=== PATIENT | female | born 1945 | race Caucasian/White ===

== ENCOUNTER 2016-07-31 09:03 | Emergency (ER) | payer OTHER ==
[~2016-07-31] VITALS: Ht 162.6 cm; Wt 68.8 kg
[~2016-07-31 09:03] MED LIST: ASPEC81 PO; CALCTAB5 PO; HYDC25 PO; SIMV20TA2 PO
[2016-07-31 09:11] VITALS: TEMP 36.9; Ht 162.6 cm; Wt 68.8 kg
--- NOTE | 2016-07-31 10:07 | DIAGNOSTIC IMAGING REPORT ---
CHEST 2 VIEWS ROUTINE HISTORY: productive cough COMPARISON: Chest 05/09/2008. FINDINGS: A few small bibasilar linear densities likely represent subsegmental atelectasis or scarring. No focal lung consolidations to suggest pneumonia. No evidence for pulmonary edema. The heart is normal in size. No pleural effusions. No pneumothorax. Upper abdominal surgical clips suggest a prior cholecystectomy. IMPRESSION: A few small bibasilar linear densities likely representing scarring or subsegmental atelectasis. No focal lung consolidations to suggest pneumonia. Electronically signed by: Tyshawn Sutherland M.D. 07/31/2016 10:05 AM Dictated Date/Time: 07/31/2016 10:04 AM
[2016-07-31 11:08] LABS: BASO % 0.3 %; BASO ABS # 0.01 K/uL (0-0.2); COMPLETE YES; HEMATOCRIT 42.8 % (37-47); IG% 0.3 %; LYMPH % 33.3 %; LYMPH ABS # 1.32 K/uL (1.2-3.4); MEAN CELL VOLUME 86.8 fL (80-100); MEAN CORPUSCULAR HEMOGLOBIN 29.2 pg (25-34); MEAN CORPUSCULAR HGB CONC 33.6 g/dl (32-36); MEAN PLATELET VOLUME 9.3 fL (7.4-10.4); MONO % 16.7 %; NEUT % 48.4 %; PLATELET COUNT 183 K/uL (130-400); RED BLOOD COUNT 4.93 M/uL (4.2-5.4); WHITE BLOOD COUNT 3.96 K/uL (4.8-10.8)
[2016-07-31 11:27] LABS: BUN/CREATININE RATIO 11.3 (10-20); CALCIUM 8.7 mg/dl (8.5-10.1); CREATININE 0.8 mg/dl (0.60-1.20); POTASSIUM 2.9 mmol/L (3.5-5.1)
[2016-07-31] MEDS ORDERED: POTASSIUM CHLORIDE 10 MEQ TABCR PO STA (12:34)
[2016-07-31] MEDS ORDERED: ALBUTEROL HFA 8 GM INHALER INH ONE (12:45)
[2016-07-31 13:07] VITALS: BP 120/74; PULSE 75; O2SAT 96
--- NOTE | 2016-08-03 18:18 | EMERGENCY ROOM VISIT NOTE ---
History First contact with patient: 09:53 Chief Complaint: COUGH Stated Complaint: COUGHING, DIFFICULTY BREATHING, WEAK Nursing Triage Summary: Patient states symptoms started . Went to PCP and was put on Tamiflu and cough syrup. Not tested for the flu and no chest xray was done. Cough became productive Monday. Patient states cough ranges from thick, yellow to red. Patient states was feeling better yesterday, but today feels worse again. History of Present Illness The patient is a 71 year old white female who presents to the Emergency Room with complaints of weakness, persistent cough, and shortness of breath. Symptoms have been present since . She saw her PCP on Monday and was laced on Tamiflu and cough syrup. She has not been taking the cough syrup because it makes her lightheaded and dizzy. She states no influenza swab was done and no chest x-ray was performed. Her cough is productive. Mucous is occasionally yellow and is thick. She felt better yesterday but feels worse again today. Her daughter accompanies her today. Patient denies any nausea or vomiting. No diarrhea. She is unsure if there is a fever. Occasional chills. She does not think the Tamiflu helped. No recent respiratory infection. No known ill contacts. No history of asthma. Review of Systems REVIEW OF SYSTEM: HEENT: No dizziness, visual problems, hearing loss, or tinnitus. There is no difficulty swallowing and no oral lesions are present. LYMPH: No adenopathy. PULMONARY: No hemoptysis. Positive cough, shortness of breath. CARDIOVASCULAR: No chest pain, palpitations, or peripheral edema. GASTROINTESTINAL: No diarrhea, constipation, nausea, vomiting, or abdominal pain. GENITOURINARY: No dysuria, frequency, urgency or nocturia. NEUROLOGIC: No weakness, muscle tenderness, epilepsy or history of neurological problems. MUSCULOSKELETAL: No history of joint tenderness/swelling. No history of arthritis or arthralgias. SKIN: No rashes or lesions. PSYCHIATRIC: No history of depression or mental illness. ENDOCRINE: No history of diabetes, thyroid disorders, or abnormal hair growth. Past Medical/Surgical History Past medical history: Significant for hypertension, history of bronchitis, and gallbladder disease. Previous surgeries: Cholecystectomy Family History Significant for diabetes, cancer, and gallbladder disease. Parents are . Social History Smoking Status: Never Smoker Smokeless Tobacco Use: No Alcohol Use: none Drug Use: none Marital Status: single Housing Status: lives alone Occupation Status: employed Current/Historical Medications Scheduled Aspirin Enteric Coated (Ecotrin Or Generic *), 81 MG PO DAILY Calcium (Caltrate), 600 MG PO BID Hydrochlorothiazide (Hctz *), 25 MG PO DAILY Allergies Coded Allergies: Macrolides (Verified Allergy, Mild, 07/31/16) Physical Exam Vital Signs Date Time Temp Pulse Resp B/P Pulse Ox O2 Delivery O2 Flow Rate FiO2 07/31/16 13:07 75 22 120/74 96 07/31/16 12:34 79 22 117/70 94 Room Air 07/31/16 10:55 73 18 106/70 96 Room Air 07/31/16 09:35 81 07/31/16 09:19 97 Room Air 07/31/16 09:11 36.9 85 18 135/85 97 Room Air Pain Rating (0-10): 0 Physical Exam Gen.: Well-developed, well-nourished, elderly white female, in no acute distress. Laying on a bed. Alert and oriented. Frequently coughing. She is wearing a mask. Skin:Warm and dry with good turgor. No rashes or lesions. No ecchymosis or erythema. The patient is not diaphoretic. No abrasions. HEENT : Normocephalic atraumatic. Eyes PERRLA, EOMI. No conjunctiva or scleral injection. Ears TMs intact bilaterally with good light reflexes. No erythema or bulging. No hemotympanum. Canals are patent. Nares patent bilaterally without turbinate enlargement. No significant drainage. No epistaxis. Oropharynx without erythema or exudate. Uvula midline, oral mucosa moist. No lesions present. Postnasal drip is noted. Cobblestoning on the posterior pharynx. Lymphatics are palpated without anterior or posterior chain enlargement or tenderness. Heart: Heart RRR. No MGR. No carotid bruit. Peripheral pulses are 2+. Lungs: Lungs are clear to auscultation. No crackles rhonchi or wheezing. Good air movement. The patient is able to take a deep breath. Frequent cough. Abdomen: Abdomen was inspected, auscultated, and palpated. Bowel sounds present x 4. Soft, nontender to palpation. No hepato-splenomegaly. No masses noted. No rebound. Musculoskeletal: Gross motor function of the upper and lower extremities is intact and unremarkable. Medical Decision & Procedures ER Provider Diagnostic Interpretation: Chest x-ray obtained today was read by radiology as positive for a few small bibasilar linear densities likely representing scarring or atelectasis. No focal lung consolidations to suggest pneumonia. Laboratory Results 07/31/16 10:52 Red Blood Count 4.93, Mean Corpuscular Volume 86.8, Mean Corpuscular Hemoglobin 29.2, Mean Corpuscular Hemoglobin Concent 33.6, Mean Platelet Volume 9.3, Neutrophils (%) (Auto) 48.4, Lymphocytes (%) (Auto) 33.3, Monocytes (%) (Auto) 16.7, Eosinophils (%) (Auto) 1.0, Basophils (%) (Auto) 0.3, Neutrophils # (Auto ) 1.92, Lymphocytes # (Auto) 1.32, Monocytes # (Auto) 0.66, Eosinophils # (Auto ) 0.04, Basophils # (Auto) 0.01 07/31/16 10:52 Test 07/31/16 10:41 07/31/16 10:52 Influenza Type A Antigen Neg for Influ A (NEG) Influenza Type B Antigen Neg for Influ B (NEG) White Blood Count 3.96 K/uL (4.8-10.8) Red Blood Count 4.93 M/uL (4.2-5.4) Hemoglobin 14.4 g/dL (12.0-16.0) Hematocrit 42.8 % (37-47) Mean Corpuscular Volume 86.8 fL (80-100) Mean Corpuscular Hemoglobin 29.2 pg (25-34) Mean Corpuscular Hemoglobin Concent 33.6 g/dl (32-36) Platelet Count 183 K/uL (130-400) Mean Platelet Volume 9.3 fL (7.4-10.4) Neutrophils (%) (Auto) 48.4 % Lymphocytes (%) (Auto) 33.3 % Monocytes (%) (Auto) 16.7 % Eosinophils (%) (Auto) 1.0 % Basophils (%) (Auto) 0.3 % Neutrophils # (Auto) 1.92 K/uL (1.4-6.5) Lymphocytes # (Auto) 1.32 K/uL (1.2-3.4) Monocytes # (Auto) 0.66 K/uL (0.11-0.59) Eosinophils # (Auto) 0.04 K/uL (0-0.5) Basophils # (Auto) 0.01 K/uL (0-0.2) RDW Standard Deviation 40.3 fL (36.4-46.3) RDW Coefficient of Variation 12.6 % (11.5-14.5) Immature Granulocyte % (Auto) 0.3 % Immature Granulocyte # (Auto) 0.01 K/uL (0.00-0.02) Anion Gap 7.0 mmol/L (3-11) Est Creatinine Clear Calc Drug Dose 62.4 ml/min Estimated GFR () 86.6 Estimated GFR (Non- 74.7 BUN/Creatinine Ratio 11.3 (10-20) Calcium Level 8.7 mg/dl (8.5-10.1) CBC, PRP, an influenza swab were obtained. They are unremarkable except her potassium of 2.9. Medications Administered Medications (Trade) Dose Ordered Sig/Dayami Route Start Time Stop Time Status Last Admin Dose Admin Albuterol (Ventolin Hfa Inhaler) 4 puffs NOW ONCE INH 07/31/16 12:45 07/31/16 12:46 DC 07/31/16 12:46 4 PUFFS Potassium Chloride (Klor-Con M10) 20 meq NOW STAT PO 07/31/16 12:34 07/31/16 12:36 DC 07/31/16 12:45 20 MEQ Potassium 20 and V/Q orally, albuterol inhaler with spacer ED Course Patient was educated regarding today's findings. Conservative care measures were discussed. IV was established. Labs were obtained. Chest x-ray was obtained. Influenza swab was also obtained. No significant infection was found. She does not have influenza. She does not need the Tamiflu. She likely has bronchitis. She was prescribed an albuterol inhaler. 4 puffs were given in the ED, with a spacer. Continue with 2 puffs every 4 hours as needed for shortness of breath or cough. Start Delsym syrup 2 teaspoons every 12 hours until cough resolves. Follow-up with her PCP this week. Return to the ED for any acute changes or fever above 100.5. Maintain hydration. Bronchitis handout was provided. She does have a low potassium. This was also discussed. She was given supplemental potassium in the ED. She will also increase potassium intake in her daily diet. Medical Decision Possibility of PE, pneumonia, bronchitis, influenza, and other viral illness were considered. Impression Primary Impression: Acute bronchitis Departure Information Dispostion Home / Self-Care Condition GOOD Referrals Ace Villareal M.D. (PCP) Forms ALBUTEROL INHALER INSTRUCTIONS, HOME CARE DOCUMENTATION FORM, COOL MIST HUMIDIFIER, IMPORTANT VISIT INFORMATION Patient Instructions A Signature Page, Chest Cold (Bronchitis) - [facility], [facility] Additional Instructions Follow-up with your PCP next week for reexamination Return to the ED for any acute changes or fever above 100.5 Albuterol inhaler 2 puffs every 4 hours as needed for shortness of breath/cough Delsym syrup 2 teaspoons every 12 hours until cough resolves Maintain hydration
== END 2016-07-31 13:11 | disposition home or self-care (01) ==
LOC: C.EDB 09:04 → C.EDA 13:11
DX: J20.9 Acute bronchitis, unspecified (principal); I10 Essential (primary) hypertension; Z79.82 Long term (current) use of aspirin

== ENCOUNTER → 2017-01-30 | Outpatient (CLI) | payer OTHER ==
[~2017-01-30] MED LIST changes: -SIMV20TA2 PO
--- NOTE | 2017-01-30 16:06 | MAMMOGRAPHY REPORT ---
BILATERAL DIGITAL SCREENING MAMMOGRAM WITH CAD: 01/30/2017 CLINICAL HISTORY: Routine screening. Patient has no complaints. TECHNIQUE: Bilateral CC and MLO views were obtained. Current study was also evaluated with a Compute r Aided Detection (CAD) system. COMPARISON: Comparison is made to exams dated: 01/29/2016 mammogram, 01/27/2015 mammogram, 12/31/2013 jolene mogram, 11/08/2011 mammogram - [facility], 03/12/2009, and 11/14/2007. BREAST COMPOSITION: There are scattered areas of fibroglandular density in both breasts. FINDINGS: No new suspicious mass, architectural distortion or cluster of microcalcifications is seen . IMPRESSION: ACR BI-RADS CATEGORY 1: NEGATIVE There is no mammographic evidence of malignancy. A 1 year screening mammogram is recommended. The pa tient will receive written notification of the results. Approximately 10% of breast cancers are not detected with mammography. A negative mammographic report should not delay biopsy if a clinically suggestive mass is present. Eryn Dior M.D. ay/:01/30/2017 14:43:05 [employer] Associate: Harper LOZA(R)(M), [facility] letter sent: Normal 1/2 BI-RADS Code: ACR BI-RADS Category 1: Negative
== END | disposition home or self-care (01) ==
LOC: C.MAMM 13:45
PROVIDERS: ATTEND Family Medicine
DX: Z12.31 Encounter for screening mammogram for malignant neoplasm of breast (principal)

== ENCOUNTER 2017-11-19 10:44 | Emergency (ER) | payer OTHER ==
[~2017-11-19] VITALS: Ht 167.6 cm; Wt 67.8 kg
[2017-11-19 10:51] VITALS: TEMP 37.2; Ht 167.6 cm; Wt 67.8 kg
[2017-11-19] MEDS ORDERED: SODIUM CHLORIDE 0.9% 1000ML 500 ML IV STA (11:21)
[2017-11-19] MEDS ORDERED: METHYLPREDNISOLONE 125 MG VIAL IV STA (11:21)
[2017-11-19] MEDS ORDERED: ALBUT/IPRATROP 3MG/0.5MG NEB 3 ML VIAL INH STA (11:21)
[2017-11-19 11:27] VITALS: O2SAT 98
[2017-11-19] MEDS ORDERED: HYDR25TA4 PO (11:30)
[2017-11-19] MEDS ORDERED: COEN10CA5 PO (11:30)
[2017-11-19] MEDS ORDERED: ASPI81TA28 PO (11:30)
[2017-11-19] MEDS ORDERED: ROSU5TAB PO (11:30)
[2017-11-19 11:41] LABS: BASO % 0.2 %; BASO ABS # 0.01 K/uL (0-0.2); EOS % 0.2 %; EOS ABS # 0.01 K/uL (0-0.5); HEMATOCRIT 46.1 % (37-47); HEMOGLOBIN 15.1 g/dL (12.0-16.0); IG# 0.01 K/uL (0.00-0.02); LYMPH % 24.6 %; LYMPH ABS # 1.21 K/uL (1.2-3.4); MEAN CELL VOLUME 89.3 fL (80-100); MEAN CORPUSCULAR HEMOGLOBIN 29.3 pg (25-34); MEAN CORPUSCULAR HGB CONC 32.8 g/dl (32-36); MEAN PLATELET VOLUME 9.2 fL (7.4-10.4); MONO % 9.6 %; MONO ABS # 0.47 K/uL (0.11-0.59); NEUT % 65.2 %; NEUT ABS # 3.21 K/uL (1.4-6.5); PLATELET COUNT 138 K/uL (130-400); RED CELL DISTRIBUTION WIDTH CV 12.9 % (11.5-14.5); RED CELL DISTRIBUTION WIDTH SD 42.2 fL (36.4-46.3); WHITE BLOOD COUNT 4.92 K/uL (4.8-10.8)
[2017-11-19 11:49] LABS: ALBUMIN 3.9 gm/dl (3.4-5.0); CALCIUM 9.1 mg/dl (8.5-10.1); CREATININE 1.03 mg/dl (0.60-1.20)
[2017-11-19 12:00] LABS: TOTAL PROTEIN 7.6 gm/dl (6.4-8.2)
[2017-11-19] MEDS ORDERED: POTASSIUM CHLORIDE 10 MEQ TABCR PO STA (12:00)
--- NOTE | 2017-11-19 12:08 | DIAGNOSTIC IMAGING REPORT ---
SINGLE VIEW CHEST CLINICAL HISTORY: Weakness. Change in mental status. FINDINGS: An AP, portable, supine chest radiograph is compared to study dated 07/31/2016. The cardiomediastinal silhouette is unremarkable. Chronic interstitial thickening is similar to previous. There is mild elevation of right hemidiaphragm with bibasilar atelectasis. No airspace consolidation or large pleural effusion is identified. No pneumothorax is seen. The skeletal structures are osteopenic. The bony thorax is grossly intact. Cholecystectomy clips are identified in the right upper quadrant. IMPRESSION: No acute cardiopulmonary abnormality. Electronically signed by: Prashant Huizar M.D. 11/19/2017 12:06 PM Dictated Date/Time: 11/19/2017 12:05 PM
[2017-11-19] MEDS ORDERED: SODIUM CHLORIDE 0.9% 500ML 500 ML IV STA (12:15)
[2017-11-19 12:48] LABS: INFLUENZA A PCR Neg for Influ A (NEG)
[2017-11-19 12:50] LABS: INFLUENZA B PCR POS for Influ B (NEG)
[2017-11-19] MEDS ORDERED: OSELTAMIVIR PHOSPHATE 75 MG CAP PO STA (13:12)
[2017-11-19] MEDS ORDERED: AZITTAB PO (14:11)
[2017-11-19] MEDS ORDERED: OSEL75CA12 PO (14:11)
[2017-11-19] MEDS ORDERED: PRED20TA PO (14:11)
[2017-11-19 14:24] VITALS: BP 136/72; PULSE 76; O2SAT 96
--- NOTE | 2017-11-19 15:34 | EMERGENCY ROOM VISIT NOTE ---
History Report prepared by Victor M: Say Arboleda Under the Supervision of: Dr. Prashant Castillo M.D. First contact with patient: 11:10 Chief Complaint: WEAKNESS Stated Complaint: SYNCOPE,SHAKINESS,WEAKNESS Nursing Triage Summary: Fatigue for 3 days. Cough. Pt was put on Prednisone and antibiotics a few weeks ago for a cold. Pt reports this am around [id number] she sat down on the bed and passed out. Pt feels shaky. Denies pain, SOB, or fevers. PT reports being tested for the flu when she was seen at her PCP and it was negative. PT reports occasionally coughing clear sputum up. History of Present Illness The patient is a 72 year old female who presents to the Emergency Room with complaints of a resolved syncopal episode that occurred this morning. The patient states she went to her PCP on October 22 for a cough and stuffy nose. She reports she was given Zithromax and prednisone. The patient notes she took her medication as prescribed and felt better. She states she felt worse and started coughing three days ago. The patient reports she is more tired and slept 5 hours later than normal yesterday. She notes she woke up to take her medication this morning and she felt dizzy. The patient states she sat down on her bed and then woke up after losing consciousness. She reports her pills were all over the floor, and she was incontinent of her urine. The patient notes she does not remember what happened. She states she has also been experiencing intermittent flank pain over the past few days. The patient reports she has an inhaler at home and has not used it because she is not short of breath. She denies chest pain, shortness of breath, a history of lung disease, being exposed to people with the flu, and a history of diabetes, heart, or spleen issues. Source of History: patient Onset: this morning Symptom Intensity: 1 episode Quality: other (syncopal episode) Timing: resolved Associated Symptoms: + LOC, No chest pain, No SOB Note: Associated symptoms: more tired, incontinent of urine, dizziness, intermittent flank pain Review of Systems See HPI for pertinent positives & negatives. A total of 10 systems reviewed and were otherwise negative. Past Medical & Surgical Medical Problems: (1) HTN (hypertension) Surgical Problems: (1) S/P cholecystectomy Family History Cancer Diabetes mellitus FHx: gallbladder disease Social History Smoking Status: Never Smoker Alcohol Use: none Drug Use: none Marital Status: Housing Status: lives alone Occupation Status: employed Current/Historical Medications Scheduled Aspirin (Aspirin Ec), 81 MG PO DAILY Azithromycin (Zithromax Z-Karl), 0 PO UD Coenzyme Q10 (Ubidecarenone) (Co Q 10), 1 CAP PO HS Hydrochlorothiazide (Hctz), 25 MG PO DAILY Oseltamivir (Tamiflu), 75 MG PO BID Prednisone (Prednisone), 1 TAB PO DAILY Rosuvastatin Calcium (Crestor), 1 TAB PO HS Allergies Coded Allergies: Macrolides (Verified Allergy, Mild, 11/19/17) Erythromycin (Unverified Allergy, Unknown, UNKNOWN, 11/19/17) Physical Exam Vital Signs Date Time Temp Pulse Resp B/P (MAP) Pulse Ox O2 Delivery O2 Flow Rate FiO2 11/19/17 14:24 76 18 136/72 96 11/19/17 13:36 81 18 144/67 95 Room Air 11/19/17 12:00 86 18 119/70 99 Room Air 81 125/73 91 130/69 11/19/17 11:27 98 Room Air 11/19/17 11:06 82 11/19/17 10:51 37.2 87 18 125/76 98 Room Air Physical Exam GENERAL: Patient is in no acute distress. Moist cough noted. HEENT: No acute trauma, normocephalic atraumatic, mucous membranes moist, no nasal congestion, no scleral icterus. NECK: No stridor, no adenopathy, no meningismus, trachea is midline. LUNGS: Clear to auscultation bilaterally, no wheeze, no rhonchi, breath sounds equal. HEART: Without murmurs gallops or rubs, regular rate and rhythm. ABDOMEN: Soft, nontender, bowel sounds positive, no hernias, no peritonitis. EXTREMITIES: No cyanosis or edema, full range of motion of all the joints without pain or difficulty, no signs for acute trauma. NEUROLOGIC: Oriented x 3, no acute motor or sensory deficits, no focal weakness. SKIN: No rash, no jaundice, no diaphoresis. Medical Decision & Procedures ER Provider Diagnostic Interpretation: X-ray results as stated below per interpretation by me and the radiologist: SINGLE VIEW CHEST CLINICAL HISTORY: Weakness. Change in mental status. FINDINGS: An AP, portable, supine chest radiograph is compared to study dated 07/31/2016. The cardiomediastinal silhouette is unremarkable. Chronic interstitial thickening is similar to previous. There is mild elevation of right hemidiaphragm with bibasilar atelectasis. No airspace consolidation or large pleural effusion is identified. No pneumothorax is seen. The skeletal structures are osteopenic. The bony thorax is grossly intact. Cholecystectomy clips are identified in the right upper quadrant. IMPRESSION: No acute cardiopulmonary abnormality. Electronically signed by: Prashant Huizar M.D. 11/19/2017 12:06 PM Dictated Date/Time: 11/19/2017 12:05 PM Laboratory Results 11/19/17 11:05 Red Blood Count 5.16, Mean Corpuscular Volume 89.3, Mean Corpuscular Hemoglobin 29.3, Mean Corpuscular Hemoglobin Concent 32.8, Mean Platelet Volume 9.2, Neutrophils (%) (Auto) 65.2, Lymphocytes (%) (Auto) 24.6, Monocytes (%) (Auto) 9.6, Eosinophils (%) (Auto) 0.2, Basophils (%) (Auto) 0.2, Neutrophils # (Auto) 3.21, Lymphocytes # (Auto) 1.21, Monocytes # (Auto) 0.47, Eosinophils # (Auto) 0.01, Basophils # (Auto) 0.01 11/19/17 11:05 Test 11/19/17 11:05 11/19/17 11:06 11/19/17 11:09 11/19/17 13:30 White Blood Count 4.92 K/uL (4.8-10.8) Red Blood Count 5.16 M/uL (4.2-5.4) Hemoglobin 15.1 g/dL (12.0-16.0) Hematocrit 46.1 % (37-47) Mean Corpuscular Volume 89.3 fL (80-100) Mean Corpuscular Hemoglobin 29.3 pg (25-34) Mean Corpuscular Hemoglobin Concent 32.8 g/dl (32-36) Platelet Count 138 K/uL (130-400) Mean Platelet Volume 9.2 fL (7.4-10.4) Neutrophils (%) (Auto) 65.2 % Lymphocytes (%) (Auto) 24.6 % Monocytes (%) (Auto) 9.6 % Eosinophils (%) (Auto) 0.2 % Basophils (%) (Auto) 0.2 % Neutrophils # (Auto) 3.21 K/uL (1.4-6.5) Lymphocytes # (Auto) 1.21 K/uL (1.2-3.4) Monocytes # (Auto) 0.47 K/uL (0.11-0.59) Eosinophils # (Auto) 0.01 K/uL (0-0.5) Basophils # (Auto) 0.01 K/uL (0-0.2) RDW Standard Deviation 42.2 fL (36.4-46.3) RDW Coefficient of Variation 12.9 % (11.5-14.5) Immature Granulocyte % (Auto) 0.2 % Immature Granulocyte # (Auto) 0.01 K/uL (0.00-0.02) Anion Gap 6.0 mmol/L (3-11) Est Creatinine Clear Calc Drug Dose 46.9 ml/min Estimated GFR () 63.3 Estimated GFR (Non- 54.6 BUN/Creatinine Ratio 11.7 (10-20) Calcium Level 9.1 mg/dl (8.5-10.1) Magnesium Level 2.0 mg/dl (1.8-2.4) Total Bilirubin 0.3 mg/dl (0.2-1) Aspartate Amino Transf (AST/SGOT) 42 U/L (15-37) Alanine Aminotransferase (ALT/SGPT) 49 U/L (12-78) Alkaline Phosphatase 65 U/L (45-117) Total Protein 7.6 gm/dl (6.4-8.2) Albumin 3.9 gm/dl (3.4-5.0) Globulin 3.7 gm/dl (2.5-4.0) Albumin/Globulin Ratio 1.1 (0.9-2) Thyroid Stimulating Hormone (TSH) 1.120 uIu/ml (0.300-4.500) Urine Color DK YELLOW Urine Appearance CLEAR (CLEAR) Urine pH 7.0 (4.5-7.5) Urine Specific [place] 1.023 (1.000-1.030) Urine Protein NEG (NEG) Urine Glucose (UA) NEG (NEG) Urine Ketones NEG (NEG) Urine Occult Blood TRACE (NEG) Urine Nitrite NEG (NEG) Urine Bilirubin NEG (NEG) Urine Urobilinogen NEG (NEG) Urine Leukocyte Esterase SMALL (NEG) Urine WBC (Auto) 1-5 /hpf (0-5) Urine RBC (Auto) 5-10 /hpf (0-4) Urine Hyaline Casts (Auto) 1-5 /lpf (0-5) Urine Epithelial Cells (Auto) 10-20 /lpf (0-5) Urine Bacteria (Auto) NEG (NEG) Influenza Type A (RT-PCR) Neg for Influ A (NEG) Influenza Type B (RT-PCR) POS for Influ B (NEG) Bedside Troponin I < 0.030 ng/ml (0-0.045) Laboratory results reviewed by me. Medications Administered Medications (Trade) Dose Ordered Sig/Dayami Route Start Time Stop Time Status Last Admin Dose Admin Sodium Chloride 500 ml @ 999 mls/hr Q31M STAT IV 11/19/17 11:21 11/19/17 11:51 DC 11/19/17 11:45 999 MLS/HR Albuterol/ Ipratropium (Duoneb) 3 ml NOW STAT INH 11/19/17 11:21 11/19/17 11:26 DC 11/19/17 11:45 3 ML Methylprednisolone Sodium Succinate (Solu-Medrol IV) 80 mg NOW STAT IV 11/19/17 11:21 11/19/17 11:26 DC 11/19/17 11:45 80 MG Potassium Chloride (Klor-Con M10) 40 meq NOW STAT PO 11/19/17 12:00 11/19/17 12:01 DC 11/19/17 12:05 40 MEQ Sodium Chloride 500 ml @ 999 mls/hr Q31M STAT IV 11/19/17 12:15 11/19/17 12:45 DC 11/19/17 12:15 999 MLS/HR Oseltamivir Phosphate (Tamiflu Cap) 75 mg NOW STAT PO 11/19/17 13:12 11/19/17 13:13 DC 11/19/17 13:36 75 MG ECG Per My Interpretation Indication: syncope Rate (beats per minute): 74 Rhythm: normal sinus Findings: no ectopy, other (No ST elevation. No PVC) ED Course 1118: The patient was evaluated in room C09. A complete history and physical exam was performed. 1121: Ordered Solu-Medrol 80mg IV, Duoneb 3ml INH, Sodium Chloride 500 ml @ 999 mls/hr IV 1200: Ordered Potassium Chloride 40 meq PO 1205: The patient's orthostatic vital signs are negative. 1215: Ordered Sodium Chloride 500 ml @ 999 mls/hr IV 1219: I reevaluated the patient and discussed her current exam findings. 1312: Ordered Tamiflu Cap 75 mg PO 1316: I reevaluated the patient and told her she has influenza B. She asked if she could go home as long as her second troponin is negative. 1349: Reevaluated the patient. her second troponin was negative. Discussed results and discharge instructions: she verbalized understanding and agreement. The patient is ready for discharge. Medical Decision The patient is a 72 year old female who presents to the ED with complaints of a syncopal episode. Differential diagnoses considered include bronchitis or pneumonia, influenza, CHF, dysrhythmia, dehydration, anemia, electrolyte imbalance, UTI, NC, vasovagal syncope. There is no leukocytosis or concerning anemia. Renal panel testing shows a slightly low potassium at 3. No kidney failure. No hepatitis. The patient appears to be in a euthyroid state. EKG shows a normal sinus rhythm, no acute ischemia. Cardiac enzyme testing 2 does not suggest acute cardiac injury. Chest film does not show pneumonia or CHF. Influenza testing was positive for influenza B. Urinalysis does not show infection. The patient received IV saline, a second bolus was given. She received a DuoNeb , IV Solu-Medrol and oral potassium. She was given oral Tamiflu. The patient feels improved, she is not hypoxic or toxic. She does want to go home. She will be discharged on Tamiflu, she will be using her albuterol inhaler more frequently. She will be on a small dose of prednisone as well as a course of Zithromax. The patient can return here if worsening and follow with her doctors office in a few days. She was told that she was contagious and that she should avoid others. I do think the influenza has caused all of her symptoms. Medication Reconcilliation Current Medication List: was personally reviewed by me Blood Pressure Screening Patient's blood pressure: Normal blood pressure Blood pressure disposition: Did not require urgent referral Impression Primary Impression: Influenza B Additional Impressions: Weakness Hypokalemia Syncope Scribe Attestation The scribe's documentation has been prepared under my direction and personally reviewed by me in its entirety. I confirm that the note above accurately reflects all work, treatment, procedures, and medical decision making performed by me. Departure Information Dispostion Home / Self-Care Prescriptions Oseltamivir (Tamiflu) 75 Mg Cap 75 MG PO BID, #10 CAP Prov: Prashant Castillo M.D. 11/19/17 Prednisone (Prednisone) 20 Mg Tab 1 TAB PO DAILY for 5 Days, #6 TAB Prov: Prashant Castillo M.D. 11/19/17 Azithromycin (ZITHROMAX Z-KARL) 250 Mg Tab 0 PO UD, #1 PKT Prov: Prashant Castillo M.D. 11/19/17 Referrals Ace Villareal M.D. (PCP) Forms HOME CARE DOCUMENTATION FORM, IMPORTANT VISIT INFORMATION, Work Instructions Patient Instructions My [facility] Additional Instructions rest fluids tylenol for pain zpac as directed prednisone daily as directed tamiflu 2x per day for 5 days use your inhaler 2 puffs every 4 hours use a mask in public return for worsening symptoms see luz marina [facility] for a recheck this week Problem Qualifiers
== END 2017-11-19 14:25 | disposition home or self-care (01) ==
LOC: C.EDC 11:36
DX: J10.1 Influenza due to other identified influenza virus with other respiratory manifestations (principal); R53.1 Weakness; E87.6 Hypokalemia; R55 Syncope and collapse; I10 Essential (primary) hypertension; Z79.82 Long term (current) use of aspirin; Z79.899 Other long term (current) drug therapy; Z88.8 Allergy status to other drugs, medicaments and biological substances